=== PATIENT | male | born 1960 | race Caucasian/White ===

== ENCOUNTER 2018-06-12 13:01 | Emergency (ER) | payer BC ==
[2018-06-12 13:08] VITALS: TEMP 97.1
[2018-06-12] MEDS ORDERED: SODIUM CHLORIDE 0.9% FLUSH 10 ML SOL IV PRN (13:25)
[2018-06-12] MEDS ORDERED: SOLUMEDROL 125 MG/2 ML 125 MG/2 ML PDS IV ONE (13:26)
[2018-06-12] MEDS ORDERED: SOLUMEDROL 125 MG/2 ML 125 MG/2 ML PDS ONE (13:27)
[2018-06-12] MEDS ORDERED: DIPHENHYDRAMINE 50 MG/ML SOL IV ONE (13:37)
[2018-06-12] MEDS ORDERED: DIPHENHYDRAMINE 50 MG/ML SOL ONE (13:38)
[2018-06-12 15:02] LABS: BASOPHILS % (AUTO) 1 % (0-3); EOSINOPHILS % (AUTO) 2 % (0-9); HEMATOCRIT 48 % (39-53); HEMOGLOBIN 15.5 gm/dl (13.5-17.7); LYMPHOCYTES % (AUTO) 7.8 % (10-50); MEAN CORPUSCULAR HEMOGLOBIN 31.2 pg (27.0-32.0); MEAN CORPUSCULAR HGB CONC 32.5 gm/dl (32.0-36.0); MEAN CORPUSCULAR VOLUME 96 fL (80-100); MONOCYTES % (AUTO) 4.6 % (0-12); NEUTROPHILS % (AUTO) 84.8 % (37-80)
[2018-06-12 15:18] LABS: LACTIC ACID 1.3 mMol/L (0.0-2.0)
[2018-06-12 15:21] LABS: CALCIUM 8.6 mg/dl (8.5-10.1); CARBON DIOXIDE 28.1 mEq/L (21-32); CREATININE 0.93 mg/dl (0.80-1.30); CRP INFLAMMATORY 5.03 mg/dl (0.00-0.33); POTASSIUM 4.3 mMol/L (3.5-5.1)
[2018-06-12 16:27] VITALS: O2SAT 97
[2018-06-12 16:28] VITALS: BP 120/76; PULSE 64; RESP 16
== END 2018-06-12 16:23 | disposition home or self-care (01) ==
LOC: ED 13:01
DX: L03.116 Cellulitis of left lower limb (principal); B95.5 Unspecified streptococcus as the cause of diseases classified elsewhere; M79.89 Other specified soft tissue disorders; T36.8X5A Adverse effect of other systemic antibiotics, initial encounter
CPT/HCPCS: 36415; 80048; 85025; 85651; 87040; 96374; 96375; 99282; 99284; J1200; J2930; A6402